=== PATIENT | male | born 1985 | race African-American/Black ===

== ENCOUNTER 2017-07-04 21:07 | Emergency (ER) | payer OTHER ==
[~2017-07-04] VITALS: Ht 172.7 cm; Wt 77.1 kg
--- NOTE | ~2017-07-04 | EKG ---
[address] [address] [place] [address] ELECTROCARDIOGRAM REPORT Name: SOHA SEGURA Room #: 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 : 1986-03-14 Requested By: Jahaira Baker Order Number: [id number] MD: Chano Pate Measurements Intervals [place] Rate: 115 P: 75 UT: 139 QRS: -41 QRSD: 94 T: 29 QT: 318 QTc: 440 Interpretive Statements Sinus tachycardia Probable left atrial enlargement Left axis deviation ST elev, probable normal early repol pattern No previous ECG available for comparison Electronically Signed On 07-04-2017 22:24:04 CDT by Chano Pate [email or web address] <ELECTRONICALLY SIGNED> By: Chano Pate MD 07/04/17 2224 [id number] MD EVER Stringer
[2017-07-04 22:58] VITALS: BP 146/97
== END 2017-07-04 21:29 | disposition home or self-care (01) ==
LOC: EDBD 21:07 → ER 21:07
DX: R06.00 Dyspnea, unspecified (principal); F22 Delusional disorders; R00.0 Tachycardia, unspecified; F15.10 Other stimulant abuse, uncomplicated; F10.99 Alcohol use, unspecified with unspecified alcohol-induced disorder

== ENCOUNTER 2019-01-16 02:23 | Emergency (ER) | payer OTHER ==
[~2019-01-16] VITALS: Ht 172.7 cm; Wt 79.4 kg
[~2019-01-16 02:23] MED LIST: ATIVAN1 MG PO; POTASSIUM20 PO
[2019-01-16 03:04] LABS: AMP/METHAMP Negative (Negative); BARBITURATES Negative (Negative); BENZODIAZEPINES Negative (Negative); COCAINE Negative (Negative); METHADONE Negative (Negative); OPIATES Negative (Negative); PCP Negative (Negative)
[2019-01-16] MEDS ORDERED: ATIVAN1 MG PO (03:46)
[2019-01-16 03:54] VITALS: BP 141/94
--- NOTE | 2019-01-16 09:21 | EKG ---
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 : 1985 Requested By: Iván Carlson Order Number: [id number] MD: Chris Swanson Measurements Intervals [place] Rate: 103 P: 63 VT: 165 QRS: 55 QRSD: 93 T: 49 QT: 337 QTc: 441 Interpretive Statements Sinus tachycardia Early repolarization Baseline wander in lead(s) V1,V2 Compared to ECG 03/21/2018 13:50:03 No significant change was found Electronically Signed On 01-16-2019 9:21:28 DIRECTOR OF MEDICAL EDUCATION by Chris Swanson [email or web address] ��������������������������������������������� <ELECTRONICALLY SIGNED> ���������������������������������������� By: Chris Swanson MD, [facility] ��������������������������������������������� 01/16/19 0921 5 5 Chris Swanson MD, [facility] /EPI
== END 2019-01-16 03:55 | disposition home or self-care (01) ==
LOC: ER 02:23
PROVIDERS: Emergency Medicine
DX: T50.901A Poisoning by unspecified drugs, medicaments and biological substances, accidental (unintentional), initial encounter (principal); R06.02 Shortness of breath; Z87.891 Personal history of nicotine dependence